=== PATIENT | female | born 1995 | race American Indian/Alaskan Native ===

== ENCOUNTER 2018-07-22 08:04 | Emergency (ER) | payer MEDICAID ==
[~2018-07-22] VITALS: Ht 172.7 cm; Wt 108.0 kg
[~2018-07-22 08:04] MED LIST: AMOX-580 PO; HYDR-3972 PO; NEOM14.216 TP; NO HOME MEDS
[2018-07-22] MEDS ORDERED: mag hydrox/Alum hydrox/simeth 30ml oral suspension PO ONE (08:45)
[2018-07-22] MEDS ORDERED: ondansetron 4mg rapidly disintigrating tab PO ONE (08:45)
[2018-07-22] MEDS ORDERED: LIDOcaine Viscous 15ml cup PO ONE (08:45)
[2018-07-22] MEDS ORDERED: ONDA4TAB12 PO (09:21)
[2018-07-22] MEDS ORDERED: OMEP40CA37 PO (09:21)
[2018-07-22 09:51] VITALS: BP 126/83
== END 2018-07-22 09:53 | disposition home or self-care (01) ==
LOC: ER 08:04
DX: R10.13 Epigastric pain (principal); R11.10 Vomiting, unspecified; Z90.49 Acquired absence of other specified parts of digestive tract
CPT/HCPCS: 99284